=== PATIENT | male | born 1950 | race Caucasian/White ===

== ENCOUNTER 2021-11-15 10:31 | Inpatient (IN) | payer MEDICARE, OTHER ==
[2021-11-15] MEDS ORDERED: Sodium Chloride 0.9% 10 ML Syringe FLUSH PRN (12:22)
[2021-11-15] MEDS ORDERED: Furosemide 40 MG/4 ML VIAL IVPUSH ONE (12:32)
[2021-11-15 12:50] LABS: CORONAVIRUS COVID-19 NAA NEGATIVE (NEGATIVE)
[2021-11-15] MEDS ORDERED: Iopamidol 755 MG/ML 50 ML Bottle IVPUSH ONE (13:06)
[2021-11-15] MEDS ORDERED: Iopamidol 755 Mg/ML 100 ML Bottle IVPUSH ONE (13:06)
[2021-11-15] MEDS ORDERED: Sodium Chloride 0.9% 10 ML Syringe FLUSH ONE (13:06)
[2021-11-15] MEDS ORDERED: cefTRIAXone 2 GM in Sodium Chloride 0.9% 100 ML IV ONE (13:09)
[2021-11-15] MEDS ORDERED: Sodium Chloride 0.9% 100 ML IV SCH (13:15)
[2021-11-15] MEDS ORDERED: oxyCODONE 5 MG Tab PO PRN (14:30)
[2021-11-15] MEDS ORDERED: Ondansetron 4 MG/2 ML SDV IV PRN (14:30)
[2021-11-15] MEDS ORDERED: Docusate Sodium 100 MG Cap PO PRN (14:30)
[2021-11-15] MEDS ORDERED: Acetaminophen 325 MG Tab PO PRN (14:30)
[2021-11-15] MEDS ORDERED: Albuterol 0.083% 2.5 MG/3 ML Neb Soln NEB PRN (14:51)
[2021-11-15] MEDS: cefTRIAXone 2 GM in Sodium Chloride 0.9% 100 ML IV SCH (15:58)
[2021-11-15] MEDS: Azithromycin 500 MG in Sodium Chloride 0.9% 250 ML IV SCH (16:27)
[2021-11-15] MEDS ORDERED: Alirocumab [Praluent Pen] 75 MG/ML Pen.Injctr SQ SCH (18:30)
[2021-11-15] MEDS: Apixaban 5 MG Tab PO SCH (20:03)
[2021-11-16] MEDS: metFORMIN 500 MG Tab PO SCH ×2 (06:37→17:17)
[2021-11-16] MEDS ORDERED: Furosemide 40 MG/4 ML VIAL IVPUSH SCH (09:00)
[2021-11-16] MEDS: Apixaban 5 MG Tab PO SCH ×2 (09:14→21:26)
[2021-11-16] MEDS: Citalopram 10 MG Tab PO SCH (09:14)
[2021-11-16] MEDS: Magnesium Oxide 400 MG Tab PO SCH (09:14)
[2021-11-16] MEDS: amLODIPine 5 MG Tab PO SCH (09:14)
[2021-11-16] MEDS: Metoprolol Succinate 50 MG Tab.ER PO SCH (09:14)
[2021-11-16] MEDS: Aspirin 81 MG Tab.EC PO SCH (09:15)
[2021-11-16] MEDS: cefTRIAXone 2 GM in Sodium Chloride 0.9% 100 ML IV SCH (15:11)
[2021-11-16] MEDS: Azithromycin 500 MG in Sodium Chloride 0.9% 250 ML IV SCH (15:46)
[2021-11-17] MEDS ORDERED: Furosemide 40 MG Tab PO SCH (09:00)
[2021-11-17] MEDS: Apixaban 5 MG Tab PO SCH (09:34)
[2021-11-17] MEDS: Aspirin 81 MG Tab.EC PO SCH (09:35)
[2021-11-17] MEDS: Metoprolol Succinate 50 MG Tab.ER PO SCH (09:36)
[2021-11-17] MEDS: amLODIPine 5 MG Tab PO SCH (09:37)
[2021-11-17] MEDS: Citalopram 10 MG Tab PO SCH (09:37)
[2021-11-17] MEDS: Magnesium Oxide 400 MG Tab PO SCH (09:39)
[2021-11-17] MEDS: metFORMIN 500 MG Tab PO SCH (10:17)
[2021-11-17 14:37] VITALS: BP 125/67; PULSE 69
== END 2021-11-17 13:58 | disposition home or self-care (01) | DRG 291 ==
LOC: JD.ED 10:31 → JD.MS 14:30
PROVIDERS: ADMIT Internal Medicine; ATTEND Internal Medicine
DX: I50.9 Heart failure, unspecified (principal); J18.9 Pneumonia, unspecified organism; E11.9 Type 2 diabetes mellitus without complications; I48.91 Unspecified atrial fibrillation; K76.0 Fatty (change of) liver, not elsewhere classified; Z20.822 Contact with and (suspected) exposure to COVID-19; Z88.7 Allergy status to serum and vaccine; Z79.899 Other long term (current) drug therapy; Z79.52 Long term (current) use of systemic steroids; Z90.49 Acquired absence of other specified parts of digestive tract; Z79.84 Long term (current) use of oral hypoglycemic drugs; Z79.82 Long term (current) use of aspirin
CPT/HCPCS: 0241U; 36415; 71046; 71275; 80053; 82947; 83735; 83880; 84484; 85025; 85379; 86140; 86738; 87040; 93005; 93306; 94667; 94761; 97161; 93010; 96365; 96375; 99223; 99233; 99239; 99285; 99285-25; A9270-GY; J0456; J0696; J1940; J3490; J7050; Q9967

== ENCOUNTER 2022-04-02 08:53 | Emergency (ER) | payer MEDICARE, OTHER ==
[2022-04-02] MEDS ORDERED: Sodium Chloride 0.9% 10 ML Syringe FLUSH PRN (09:19)
[2022-04-02] MEDS ORDERED: methylPREDNISolone Sodium Succinate 125 MG/2 ML SDV IVPUSH PRN (09:19)
[2022-04-02] MEDS ORDERED: EPINEPHrine 1 MG/ML SDV IM PRN (09:19)
[2022-04-02] MEDS ORDERED: diphenhydrAMINE 50 MG/ML SDV IVPUSH PRN (09:19)
[2022-04-02] MEDS ORDERED: Famotidine 20 MG/2 ML SDV IVPUSH PRN (09:19)
[2022-04-02] MEDS ORDERED: Sodium Chloride 0.9% 10 ML Syringe FLUSH SCH (09:30)
[2022-04-02 10:55] VITALS: BP 120/96; PULSE 67
== END 2022-04-02 10:50 | disposition home or self-care (01) ==
LOC: JD.ED 08:53
DX: U07.1 COVID-19 (principal); I10 Essential (primary) hypertension; E11.9 Type 2 diabetes mellitus without complications; Z88.7 Allergy status to serum and vaccine; Z79.01 Long term (current) use of anticoagulants; Z79.84 Long term (current) use of oral hypoglycemic drugs
CPT/HCPCS: 71045; 99284; M0222; Q0222; 99283

== ENCOUNTER 2025-04-09 12:10 | Day surgery (SDC) | payer OTHER ==
[2025-04-09] MEDS: Polymyxin B/Trimethoprim 10 ML Bottle EYERT SCH (13:34)
[2025-04-09] MEDS: Tropicamide 1% Ophth Soln 3 ML Bottle EYERT SCH (13:58)
[2025-04-09] MEDS: Tetracaine HCl/PF 0.5% 4 ML Bottle EYEBOTH SCH (14:58)
[2025-04-09] MEDS: Lidocaine 1% PF 2 ML SDV INJECT SCH (15:18)
[2025-04-09] MEDS: Cefuroxime 10 MG/ML SYRINGE EYERT SCH (15:30)
[2025-04-09] MEDS: Pilocarpine 4% Ophth Soln 15 ML Bot EYERT SCH (15:30)
[2025-04-09 15:43] VITALS: BP 143/82; PULSE 67
== END 2025-04-09 15:43 | disposition home or self-care (01) ==
LOC: JD.SDS 12:10
PROVIDERS: ATTEND Ophthalmology
DX: E11.36 Type 2 diabetes mellitus with diabetic cataract (principal); H25.813 Combined forms of age-related cataract, bilateral; E11.3293 Type 2 diabetes mellitus with mild nonproliferative diabetic retinopathy without macular edema, bilateral; H21.81 Floppy iris syndrome; H21.40 Pupillary membranes, unspecified eye; H40.013 Open angle with borderline findings, low risk, bilateral; H16.103 Unspecified superficial keratitis, bilateral; H16.223 Keratoconjunctivitis sicca, not specified as Sjogren's, bilateral; H02.831 Dermatochalasis of right upper eyelid; H02.834 Dermatochalasis of left upper eyelid; H31.092 Other chorioretinal scars, left eye; I10 Essential (primary) hypertension; E78.00 Pure hypercholesterolemia, unspecified; Z79.01 Long term (current) use of anticoagulants; Z79.899 Other long term (current) drug therapy
CPT/HCPCS: 66982; A9270; J0697; J2003; 00142; 99100; J3490; V2632

== ENCOUNTER 2025-05-07 12:41 | Day surgery (SDC) | payer OTHER ==
[2025-05-07] MEDS: Cefuroxime 10 MG/ML SYRINGE EYELF SCH (07:30)
[2025-05-07] MEDS: Lidocaine 1% PF 2 ML SDV INJECT SCH (07:30)
[2025-05-07] MEDS: Pilocarpine 4% Ophth Soln 15 ML Bot EYELF SCH (07:30)
[2025-05-07] MEDS: Tetracaine HCl/PF 0.5% 4 ML Bottle EYEBOTH SCH (07:30)
[2025-05-07] MEDS: Polymyxin B/Trimethoprim 10 ML Bottle EYELF SCH (07:31)
[2025-05-07 14:01] VITALS: BP 119/70; PULSE 54
[2025-05-07] MEDS: Tropicamide 1% Ophth Soln 3 ML Bottle EYELF SCH (14:22)
== END 2025-05-07 16:13 | disposition home or self-care (01) ==
LOC: JD.SDS 12:41
PROVIDERS: ATTEND Ophthalmology
DX: E11.36 Type 2 diabetes mellitus with diabetic cataract (principal); H25.812 Combined forms of age-related cataract, left eye; H21.81 Floppy iris syndrome; H52.31 Anisometropia; I48.91 Unspecified atrial fibrillation; I10 Essential (primary) hypertension; Z96.1 Presence of intraocular lens; Z88.8 Allergy status to other drugs, medicaments and biological substances; Z79.01 Long term (current) use of anticoagulants; Z79.899 Other long term (current) drug therapy
CPT/HCPCS: 66982; A9270; J0697; J3490